=== PATIENT | female | born 1955 | race Two or more races ===

== ENCOUNTER 2018-12-13 03:26 | Emergency (ER) | payer OTHER ==
[2018-12-13] MEDS ORDERED: Adenosine* 3 MG/ML VIAL ONE (03:45)
[2018-12-13] MEDS ORDERED: Diltiazem IV push/loading dose 5 MG/ML 5 ML vial (25 mg) IV SLOW PU ONE (03:50)
[2018-12-13] MEDS ORDERED: NS 0.9% 1000 ML** 1,000 ML IV ONE (03:51)
--- NOTE | 2018-12-13 03:51 | ED ---
HPI Cardiac - HPI Summary HPI Summary: This patient is a 63 year old female presenting to [facility] with a chief complaint of palpitations. She states she woke up and felt like her heart was pounding. She reports throat tightness. She states her brother has cardiac problems and her brother gets ablations for AFIB. The patients tachycardia resolved while the physician was examining the patient. The patient has no pertinent medical history. - History of Current Complaint Chief Complaint: EDDysrhythmPalp Stated Complaint: THUMPING IN CHEST/ABD PER PT Time Seen by Provider: 12/13/18 03:43 Hx Obtained From: Patient Timing: Lasting Hours Pain Intensity: 0 Pain Scale Used: 0-10 Numeric - Allergy/Home Medications Allergies/Adverse Reactions: Allergies Allergy/AdvReac Type Severity Reaction Status Date / Time codeine Allergy Unknown Verified 12/13/18 03:31 Reaction Details phenobarbital Allergy Unknown Verified 12/13/18 03:31 Reaction Details Home Medications: Home Medications NK [No Home Medications Reported] 12/13/18 [History Confirmed 12/13/18] PMH/Surg Hx/FS Hx/Imm Hx Endocrine/Hematology History: Denies: Hx Diabetes Cardiovascular History: Denies: Hx Coronary Artery Disease - Cancer History Hx Chemotherapy: No Hx Radiation Therapy: No Infectious Disease History: No Infectious Disease History: Denies: Traveled Outside the [place] in Last 30 Days - Family History Known Family History: Positive: Cardiac Disease - Social History Alcohol Use: Rare Substance Use Type: Reports: None Smoking Status (MU): Never Smoked Tobacco Review of Systems Negative: Fever Positive: Sore Throat Positive: Palpitations All Other Systems Reviewed And Are Negative: Yes Physical Exam - Summary Physical Exam Summary: VITAL SIGNS: Reviewed. GENERAL: Patient is a well-developed and nourished FEMALE who is lying comfortable in the stretcher. Patient is not in any acute respiratory distress. HEAD AND FACE: No signs of trauma. No ecchymosis, hematomas or skull depressions. No sinus tenderness. EYES: PERRLA, EOMI x 2, No injected conjunctiva, no nystagmus. EARS: Hearing grossly intact. Ear canals and tympanic membranes are within normal limits. MOUTH: Oropharynx within normal limits. NECK: Supple, trachea is midline, no adenopathy, no JVD, no carotid bruit, no c- spine tenderness, neck with full ROM. CHEST: Symmetric, no tenderness at palpation LUNGS: Clear to auscultation bilaterally. No wheezing or crackles. CVS: Regular rate and rhythm, S1 and S2 present, no murmurs or gallops appreciated. Patient was initially in SVT and spontaneously converted to NSR. ABDOMEN: Soft, non-tender. No signs of distention. No rebound no guarding, and no masses palpated. Bowel sounds are normal. EXTREMITIES: FROM in all major joints, no edema, no cyanosis or clubbing. NEURO: Alert and oriented x 3. No acute neurological deficits. Speech is normal and follows commands. SKIN: Dry and warm Triage Information Reviewed: Yes Vital Signs On Initial Exam: Initial Vitals Temp Pulse Resp BP Pulse Ox 97.2 F 145 18 132/82 96 12/13/18 03:29 12/13/18 03:29 12/13/18 03:29 12/13/18 03:29 12/13/18 03:29 Vital Signs Reviewed: Yes Diagnostics - Vital Signs Vital Signs Temp Pulse Resp BP Pulse Ox 12/13/18 03:42 144 19 98 12/13/18 03:36 142 15 129/95 97 12/13/18 03:29 97.2 F 145 18 132/82 96 - Laboratory Result Diagrams: 12/13/18 04:07 12/13/18 04:07 Lab Statement: Any lab studies that have been ordered have been reviewed, and results considered in the medical decision making process. - EKG 0327 Cardiac Rate: Tachycardia - 144 BPM EKG Rhythm: SVT ST Segment: Non-Specific 0347 Cardiac Rate: NL - 74 BPM EKG Rhythm: Sinus Rhythm Summary of EKG Findings: Normal axis, normal interval, no ischemic changes. Disposition - Course Course Of Treatment: This patient is a 63 year old female presenting to [facility] with a chief complaint of palpitations. EKG is remarkable for SVT, however this resolved during the physical examination. This was verified with a 2nd EKG which showed NSR. The patient will be treated for SVT and discharged. She will be instructed to follow up with cardiology. This plan was discussed with the patient and she was agreeable with this plan. - Diagnoses Provider Diagnoses: SVT (supraventricular tachycardia) Discharge - Sign-Out/Discharge Documenting (check all that apply): Patient Departure - Discharge Patient Received Moderate/Deep Sedation with Procedure: No - Discharge Plan Condition: Stable Disposition: HOME Patient Education Materials: Supraventricular Tachycardia (ED) Referrals: [facility] [Provider Group] Additional Instructions: Return to ED with any new or worsening symptoms. - Billing Disposition and Condition Condition: STABLE Disposition: Home - Attestation Statements Document Initiated by Bhavinibe: Yes Documenting Scribe: Antoni Henley Provider For Whom Claudia is Documenting (Include Credential): Shannan Donaldson MD Scribe Attestation: Antoni Arce scribed for Shannan Donaldson MD on 12/13/18 at 0626. Scribe Documentation Reviewed: Yes Provider Attestation: The documentation as recorded by the Antoni frost accurately reflects the service I personally performed and the decisions made by Galen ortiz MD Status of Scribe Document: Viewed
[2018-12-13 04:21] LABS: ABS Eosinophils 0.3 10^3/ul (0-0.6); ABS Lymphocytes 1.8 10^3/ul (1.0-4.8); ABS Monocytes 0.4 10^3/ul (0-0.8); ABS Neutrophils 3.2 10^3/ul (1.5-7.7); Eosinophil % 4.9 %; Hematocrit 40 % (35-47); Hemoglobin 13.4 g/dL (12.0-16.0); Lymphocyte % 31.9 %; Mean Corpuscular HGB Conc 34 g/dL (31-36); Mean Corpuscular Hemoglobin 29 pg (27-31); Mean Corpuscular Volume 86 fL (80-97); Mean Platelet Volume 8.3 fL (7.4-10.4); Nucleated Red Blood Cells % 0.1; Platelet Count 197 10^3/uL (150-450); Red Blood Count 4.62 10^6 /uL (3.70-4.87); Red Cell Distribution Width 13 % (10-15); White Blood Count 5.7 10^3/uL (3.5-10.8)
[2018-12-13 04:28] LABS: Activated Partial Thrombo Time 35.1 seconds (26.0-38.0); INR 0.95 (0.82-1.09)
[2018-12-13 04:37] LABS: Albumin 4.2 g/dL (3.2-5.2); Albumin/Globulin Ratio 1.9 (1-3); Calcium 9.9 mg/dL (8.6-10.3); EGFR African American 67.5 (>60); EGFR Non-African American 55.8 (>60); Globulin 2.2 g/dL (2-4); Magnesium 2.1 mg/dL (1.9-2.7); Potassium 3.8 mmol/L (3.5-5.0); Total Bilirubin 0.6 mg/dL (0.2-1.0); Total Protein 6.4 g/dL (6.4-8.9)
[2018-12-13 05:17] VITALS: BP 106/63
== END 2018-12-13 05:17 | disposition home or self-care (01) ==
LOC: ED 03:26
DX: I47.1 Supraventricular tachycardia (principal); Z88.5 Allergy status to narcotic agent; Z88.8 Allergy status to other drugs, medicaments and biological substances
CPT/HCPCS: 36415; 80053; 83735; 84443; 84484; 85025; 85610; 85730; 93005; 96361; 96374; 99283; J0153